=== PATIENT | female | born 1965 ===

== ENCOUNTER 2017-08-31 11:09 | Emergency (ER) | payer MEDICARE ==
[2017-08-31 11:18] VITALS: BMI 27.3
[2017-08-31 11:20] VITALS: BP 117/69; PULSE 81; RESP 20; TEMP 97.7; O2SAT 100
--- NOTE | 2017-08-31 12:02 | ED PDOC ---
HPI: Abdomen Time Seen by Provider: 08/31/17 11:42 Chief Complaint (Nursing): Abdominal Pain Chief Complaint (Provider): Navel pain History Per: Patient History/Exam Limitations: no limitations Onset/Duration Of Symptoms: Days Outside of [place] travel?: No Current Symptoms Are (Timing): Still Present Location Of Pain/Discomfort: Periumbilical Associated Symptoms: denies: Fever, Chills, Nausea, Vomiting Additional Complaint(s): 52yo female with no past medical history, presents to ED with complaints of a bump to her navel, which she noticed yesterday. She states the bump is painful but denies any discharge or trauma to the area. She also states she has not been touching or irritating her navel area. She denies any fever, chills, abdominal pain, nausea or vomiting. No other complaints. Past Medical History Reviewed: Historical Data, Nursing Documentation, Vital Signs Vital Signs: Last Vital Signs Temp 97.7 F 08/31/17 11:18 Pulse 81 08/31/17 11:18 Resp 20 08/31/17 11:18 BP 117/69 08/31/17 11:18 Pulse Ox 100 08/31/17 12:17 - Medical History PMH: Arthritis, Depression Denies: Anxiety, Bipolar Disorder, Fractures, Osteoporosis, Paranoia, Post Traumatic Stress Disorder, Chronic Kidney Disease, Rheumatoid Arthritis, Schizophrenia - Surgical History Surgical History: Cholecystectomy (4 WEEKS AGO), Denies: Appendectomy, CABG, Carotid Endarterectomy, Coronary Stent, Endoscopy , Pacemaker, Tonsillectomy - Family History Family History: States: No Known Family Hx - Home Medications Home Medications: Ambulatory Orders Medication Instructions Recorded Alprazolam [Xanax] 1 mg PO DAILY 03/22/14 QUEtiapine [SEROquel] 300 mg PO DAILY 03/22/14 Cephalexin [cephalexin] 500 mg PO QID #28 cap 08/31/17 Naproxen [Naprosyn] 500 mg PO BID PRN #15 tablet 08/31/17 - Allergies Allergies/Adverse Reactions: Allergies Allergy/AdvReac Type Severity Reaction Status Date / Time No Known Allergies Allergy Verified 03/22/14 09:25 Review of Systems ROS Statement: Except As Marked, All Systems Reviewed And Found Negative Constitutional: Negative for: Fever, Chills Gastrointestinal: Positive for: Other (painful bump on navel). Negative for: Nausea, Vomiting, Abdominal Pain Physical Exam - Reviewed Nursing Documentation Reviewed: Yes Vital Signs Reviewed: Yes - Physical Exam Appears: Positive for: Non-toxic, No Acute Distress Head Exam: Positive for: ATRAUMATIC, NORMAL INSPECTION, NORMOCEPHALIC Skin: Positive for: Normal Color Eye Exam: Positive for: Normal appearance Neck: Positive for: Supple Cardiovascular/Chest: Positive for: Regular Rate, Rhythm Respiratory: Positive for: Normal Breath Sounds Gastrointestinal/Abdominal: Positive for: Soft, Other (inside the umbilicus, there is a non-fluctuant hard mass with circumferential tenderness. no erythema , induration or discharge noted. no vesicles.). Negative for: Tenderness Neurologic/Psych: Positive for: Alert, Oriented. Negative for: Motor/Sensory Deficits - ECG O2 Sat by Pulse Oximetry: 100 (RA) Pulse Ox Interpretation: Normal Medical Decision Making Medical Decision Making: Impression: Cellulitis Plan: -- Motrin 600 mg PO Patient to be discharged home with antibiotics and instructions to follow up with PCP regarding cellulitis in 2-3 days. Scribe Attestation: Documented by Nikole Johnson acting as a scribe for Soraida Díaz MD. Provider Attestation: All medical record entries made by the Scribe were at my direction and personally dictated by me. I have reviewed the chart and agree that the record accurately reflects my personal performance of the history, physical exam, medical decision making, and the department course for this patient. I have also personally directed, reviewed, and agree with the discharge instructions and disposition. Disposition - Clinical Impression Clinical Impression: Umbilical mass, Cellulitis - Disposition Referrals: Sabino Allen [Medical Doctor] - Disposition: Routine/Home Disposition Time: 11:59 Condition: STABLE Prescriptions: Cephalexin [cephalexin] 500 mg PO QID #28 cap Naproxen [Naprosyn] 500 mg PO BID PRN #15 tablet PRN Reason: Pain, Moderate (4-7) Instructions: Cellulitis (Skin Infection), Adult (DC) Forms: [employer] (Dominican), [employer] (Uzbek) Print Language: BULGARIAN
== END 2017-08-31 12:28 | disposition home or self-care (01) ==
LOC: H.ER 11:09
DX: L03.316 Cellulitis of umbilicus (principal); R19.05 Periumbilic swelling, mass or lump